=== PATIENT | female | born 1980 | race Caucasian/White ===

== ENCOUNTER 2024-09-07 13:31 | Emergency (ER) | payer BC, SELFPAY ==
[2024-09-07 13:36] VITALS: BP 136/90
[2024-09-07 14:01] LABS: % Basophils 0.5 % (0-2); % Eosinophils 3.6 % (0-6); % Immature Granulocytes 0.4 % (0-0.5); % Lymphocytes 25.3 % (20.5-51.1); % Neutrophils 64.2 % (42.2-75.2); Absolute Eosinophils 0.3 10^3/uL (0-0.7); Absolute Lymphocytes 1.9 10^3/uL (1.2-3.4); Absolute Monocytes 0.5 10^3/uL (0.1-0.6); Absolute Neutrophils 4.9 10^3/uL (1.4-6.5); Hematocrit 37.8 % (37.0-47.0); Hemoglobin 13.1 g/dL (12.0-16.0); Mean Corp Hgb Conc. 34.7 g/dL (33.0-37.0); Mean Corpuscular Hgb 29.2 pg (27.0-31.0); Mean Corpuscular Volume 84.4 fL (81.0-99.0); Mean Platelet Volume 11.3 fL (7.4-10.4); Nucleated Red Blood Cells % 0 %; Platelet Count 230 10^3/uL (130-400); Red Blood Cell Count 4.48 10^6/uL (4.20-5.40); Red Cell Dist. Width 11.5 % (11.5-14.5); White Blood Cell Count 7.6 10^3/uL (4.8-10.8)
[2024-09-07 14:28] LABS: HCG, Serum Qualitative Screen Negative
[2024-09-07 14:35] LABS: ALT (SGPT) 18 U/L (0-35); AST (SGOT) 20 U/L (14-36); Albumin 4.3 g/dl (3.5-5.0); Alkaline Phosphatase 73 U/L (38-126); Blood Urea Nitrogen 15 mg/dl (7-17); Calcium 9.8 mg/dl (8.4-10.2); Carbon Dioxide 30 mmol/L (22-30); Chloride 106 mmol/L (98-107); Glucose 77 mg/dl (70-99); Potassium 4.1 mmol/L (3.5-5.1); Sodium 143 mmol/L (135-145); Total Bilirubin 0.4 mg/dl (0.2-1.3); Total Protein 6.5 g/dl (6.3-8.2); eGFR > 60.00
[2024-09-07 14:44] LABS: Lipase 70 U/L (23-300)
[2024-09-07 15:05] VITALS: BP 121/73; BMI 36.8
--- NOTE | 2024-09-07 15:33 | EDRN ---
Pt given stool container for stool sample w/ instructions at this time.
--- NOTE | 2024-09-07 15:50 | EDRN ---
Pt attempting stool spec in BR at this time.
[2024-09-07] MEDS: NSS 1000 IV (15:57)
[2024-09-07] MEDS: TORADOL 15 MG IV (16:09)
--- NOTE | 2024-09-07 16:41 | ED.GENMED ---
History of Present Illness
General
Chief Complaint: Abdominal Symptoms
Source: patient
Exam Limitations: none
Time Seen by Provider: 09/07/24 15:05
Nursing documentation reviewed up to this point in time: agreed with
History of Present Illness
History of Present Illness:
Patient is a 44-year-old female presenting to the emergency department for evaluation of left-sided abdominal pain. Patient states this pain started yesterday morning and is been gradually worsening. She describes a pain across her entire left
abdomen with some radiation into her left back. Patient denies any known fevers although has felt 'chilly '. She denies any nausea or vomiting. However�patient does report frequent diarrhea over the past 2 weeks. She states that every time she
goes to urinate she has liquid nonbloody diarrhea. Patient denies any dysuria or hematuria. Patient denies any abnormal vaginal bleeding or discharge.
Patient was seen by her PCP 1.5 weeks ago where they sent stool studies however she is unsure what tests they ran. She has not received any results for this. She denies any recent antibiotic use or hospitalizations. No known sick contacts. No
undercooked meat or raw seafood.
She is scheduled for colonoscopy on 09/25.
Past History
Past History
ED Past Medical History: Psychiatric (anxiety)
ED Past Surgical History: Appendectomy, Orthopedic and Other
Social History
Tobacco: Former smoker
Alcohol: None
Drug: None
Personal:
Living: with family
Employment: Employed
Family History
Family History: Other
Review of Systems
Review of Systems
Allergies reviewed?: Yes
All Other Systems: ROS reviewed and negative except as documented in HPI and ROS
Phy Exam
Physical Exam
Physical Exam:
Vitals: Patient's vital signs are stable. Afebrile
General: Patient is well appearing, no acute distress. Nontoxic appearing
Skin: Warm and dry, no rashes or lesions
Head: Normocephalic, atraumatic
Eyes: Sclera nonicteric. EOMs intact. No nystagmus.
Throat: Protecting airway
Neck: Normal ROM, no cervical spine tenderness, no meningismus
Cardiac: Regular rate and rhythm, no murmurs.
Pulm: Normal respiratory effort, no wheezes, rales, rhonchi heard on exam.
Abdomen: Abdomen soft. Mild tenderness in left mid and left lower abdomen. No rebound tenderness or guarding. No CVA tenderness
Extremities: No evidence of cyanosis or edema. Palpable DP pulses bilateral
Neuro: AAOx3. Grossly intact.
Psychiatric: Normal affect.
Course
Orders/Labs/Results
Orders:
Orders
09/07/24 13:40
Test Result ONCE
09/07/24 13:48
Complete Blood Count/With Diff Urgent
Comprehensive Metabolic Panel Urgent
HCG, Serum Qualitative Screen Urgent
Comment: Notify provider if positive test present
Lipase Urgent
09/07/24 15:21
0.9% Sodium Chloride 1000 ml [Nss] 1,000 ml IV BOLUS
Ketorolac [Toradol] 15 mg IV NOW STA
09/07/24 15:22
CT Abd/pelvis W Iv Cont Urgent
Comment:
Reason For Exam: Left abdominal pain, +diarrhea
09/07/24 16:00
STOOL [C difficile Antigen & Toxins] Urgent
MARY Source: Feces/Stool
Specimen Description:
Date Specimen was Collected: 09/07/24
Time Specimen was Collected: 15:56
Stool Culture Urgent
MARY Source: Feces/Stool
Specimen Description:
Date Specimen was Collected: 09/07/24
Time Specimen was Collected: 15:56
09/07/24 18:29
Urinalysis Reflex To Culture Urgent
Date Specimen was Collected: 09/07/24
Time Specimen was Collected: 18:24
Urine Microscopic Reflex Cult Urgent
Urine Culture Urgent
MARY Source: U
Specimen Description:
Date Specimen was Collected: 09/07/24
Time Specimen was Collected: 18:24
09/07/24 18:42
Morphine Sulfate 4 mg .ROUTE .STK-MED ONE
09/07/24 18:46
Morphine Sulfate 4 mg IV NOW STA
Abnormal Lab Results
09/07/24 09/07/24
13:48 18:29
MPV 11.3 H fL
(7.4-10.4)
Leukocyte Esterase Rfl 1+ A
(Negative)
Urine Bacteria (Reflex) Few A
(Negative)
09/07/24 13:48
09/07/24 13:48
Vital Signs
Initial and Last Documented VS:
Initial Vital Signs
Temp Pulse Resp BP Pulse Ox
98.6 F 79 16 136/90 100
09/07/24 13:36 09/07/24 13:36 09/07/24 13:36 09/07/24 13:36 09/07/24 13:36
Last Documented Vital Signs
Temp Pulse Resp BP Pulse Ox
98.6 F 74 16 135/87 100
09/07/24 13:36 09/07/24 18:32 09/07/24 18:32 09/07/24 18:32 09/07/24 18:32
MDM/Problems Addressed
Differential Diagnosis Includes:
Not limited to: Diverticulitis, viral gastroenteritis, colitis, constipation, UTI, etc.
MDM/Problems Addressed:
Patient is a 44-year-old female presenting with 2 weeks of diarrhea now with left-sided abdominal pain worsening over the past 2 days. No fevers, chills, vomiting. No urinary symptoms. Vital stable�she is afebrile. Physical exam as above.
Patient well-appearing, in no apparent distress. Patient is nontoxic-appearing. She has mild tenderness in left mid abdomen without rebound tenderness or guarding. Abdomen is soft throughout. Cardio/pulmonary assessment unremarkable.
Differential broad�although considerations include possible diverticulitis vs colitis vs other. Labs were sent in triage. No abnormalities noted on CBC or CMP. Lipase is normal. Given left-sided abdominal pain and history of diverticulosis�will
obtain CT scan to rule out acute diverticulitis. Will check stool sample. Will closely monitor and reassess.
Update 5 PM: C. difficile negative. CT pending.
Update 8 PM: CT report shows no acute abnormalities. Patient remains well-appearing, no apparent distress. Very low suspicion for acute infectious process given patient is afebrile with no leukocytosis and negative abdominal imaging. C. difficile
is negative. Further stool cultures are pending. At this point does feel patient stable for discharge home with primary care follow-up. She is scheduled for colonoscopy later this month and will follow-up at that point. Strict return precautions
discussed with patient. Patient verbalized understanding and is comfortable with plan.
Chronic conditions affecting care:
N/A
Acute Exacerbation and/or Progression of Chronic Illness:
N/A
*Radiology
Radiology exam reviewed: radiology read reviewed
*Pulse Oximetry
Patient hypoxic: no
*EKG
Interpreted by ED Provider?: NA
*Food Service Ambassador Interpretation
Rate: Food Service Ambassador- N/A
*Critical Care Note
Total Time (30-74mins, 75-104mins- exclusive of procedures): Not Applicable
Patient Management
Escalation/DeEscalation of care consider admission/obs:
Admit not indicated
ED Attending Note
-
Portions of this chart may have been created with voice recognition software.� Occasional wrong word or��sound alike� substitutions may have occurred due to the inherent limitations of voice recognition software.
Discharge Plan
Departure
Patient Disposition: Home (Routine Discharge)
Date of Disposition: 09/07/24
Time of Disposition: 20:28
Patient with high blood pressure during this ER visit?: Yes
Condition: Good
Covid-19: Not Applicable
Discharge Problem:
Unspecified abdominal pain
Instructions: Diarrhea in teens and adults, Dehydration, Adult (DC), Abdominal Pain, BLOOD PRESSURE
Prescriptions:
No Action
alprazolam 0.5 MG tablet
0.5 mg PO PRN PRN (Reason: anxiety)
metronidazole 500 mg tablet
500 mg PO TID Qty: 29 0RF
ciprofloxacin HCl 250 mg tablet
250 mg PO BID Qty: 19 0RF
ondansetron HCl 4 mg tablet
4 mg PO Q8H PRN (Reason: nausea and vomiting) Qty: 10 0RF
Referrals:
Abigail Aguiar MD [Family Provider] - Follow up in 5-7 days
Activity Restrictions/Additional Instructions:
Return to the emergency department with any high fevers, worsening abdominal pain, intractable nausea/vomiting, persistent diarrhea, concerns of severe dehydration, or any other concerns
- As discussed�your lab work and CT scan showed no acute abnormalities today. We did send stool cultures and we will contact you if anything comes back positive
- It is important that you continue to stay well-hydrated and eat a bland diet until symptoms resolve.
- It is keep your appointment for your colonoscopy with GI in a few weeks. Follow-up with your primary care for further evaluation/management to ensure that symptoms are improving
Monitor your symptoms closely and return to the emerged department with any acute worsening/new symptoms or any other concern
Interventions
Interventions:
*Risk Screen - Suicide Last Done: 09/07/24 15:05
*General Assessment Last Done: 09/07/24 15:05
*Neglect/Abuse Screening Last Done: 09/07/24 15:05
*ED- Fall Risk Assessment Last Done: 09/07/24 15:05
*ED COVID-19 Vaccine History Last Done: 09/07/24 15:05
*Nursing Disposition Last Done: 09/07/24 20:40
TG-Rmomxp-Xxdqiviinv Assessment Last Done: 09/07/24 15:05
Discharge Date and Time
Discharge Date/Time: 09/07/24 20:47
Print Language: HEBREW
[2024-09-07 16:50] VITALS: BP 112/64
[2024-09-07 18:32] VITALS: BP 135/87
[2024-09-07 18:45] LABS: Urine Albumin Negative (Neg - Trace); Urine Bilirubin Negative (Negative); Urine Character Clear (Clear); Urine Color Yellow; Urine Glucose Negative (Negative); Urine Ketone Negative (Negative); Urine Leukocyte 1+ (Negative); Urine Nitrite Negative (Negative); Urine Occult Blood Negative (Negative); Urine Urobilinogen Negative (Neg - 1+)
--- NOTE | 2024-09-07 18:45 | EDRN ---
Pt has had morphine w/ no problem in the past, Juan Buchanan said okay to give if not allergic to morphine.
[2024-09-07] MEDS: MORPHINE SULFATE 4 MG IV (18:46)
--- NOTE | 2024-09-07 18:49 | EDRN ---
Pt administered morphine 4 mg IV for her pain. Pt stated prior to administration she can get a ride home.
--- NOTE | 2024-09-07 18:53 | EDRN ---
Report given to Farshad RUTHERFORD in Results Pending. Pt going to go to [facility] after CT scan.
[2024-09-07 19:59] LABS: Urine Bacteria Few (Negative); Urine Red Blood Cell 0-2 /HPF (0-2); Urine Squamous Cell >30 /LPF (Few)
== END 2024-09-07 20:47 | disposition home or self-care (01) ==
LOC: EMR 13:31
PROVIDERS: Emergency Medicine; Physician Assistant; EMERGENCY PHYSICIAN Student in an Organized Health Care Education/Training Program; FAMILY PHYSICIAN Family Medicine
DX: R10.12 Left upper quadrant pain (principal); R19.7 Diarrhea, unspecified; M54.9 Dorsalgia, unspecified; R03.0 Elevated blood-pressure reading, without diagnosis of hypertension; F41.9 Anxiety disorder, unspecified; Z87.891 Personal history of nicotine dependence; Z88.5 Allergy status to narcotic agent; Z88.0 Allergy status to penicillin
CPT/HCPCS: 99284; 96375; 96361; 96374; 74177; 80053; 81003; 81015; 83690; 84703; 85025; 87045; 87046; 87086; 87324; 87427; 87449; Q9967